=== PATIENT | male | born 1950 | race Caucasian/White ===

== ENCOUNTER 2021-10-02 14:50 | Emergency (ER) | payer BC ==
[~2021-10-02] VITALS: Ht 170.2 cm; Wt 74.8 kg
--- NOTE | 2021-10-02 15:06 | NUR ---
Patient to ER bed 07 to gown for evaluation. Side rails up.
[2021-10-02 15:07] VITALS: BP_SYST 166
--- NOTE | 2021-10-02 15:07 | NUR ---
Dr Rodriguez evaluating patient at bedside
--- NOTE | 2021-10-02 15:15 | NUR ---
Lab at bedside for blood draw.
--- NOTE | 2021-10-02 15:24 | NUR ---
EKG done with results to Dr. Rodriguez for interpretation.
--- NOTE | 2021-10-02 15:39 | NUR ---
PCXR done at bedside.
[2021-10-02 15:41] LABS: ANION GAP 7 (5-15); BASOPHILS % (AUTO) 0.3 % (0.0-2.0); CALCIUM 8.3 mg/dL (8.4-11.0); CHLORIDE 103 mmol/L (98-107); EOSINOPHILS # (AUTO) 0.1 K/uL (0.0-0.4); EOSINOPHILS % (AUTO) 1.1 % (0.0-4.0); GLUCOSE 115 mg/dL (70-99); HEMATOCRIT 41.7 % (36-54); HEMOGLOBIN 14.3 g/dL (14.0-18.0); LYMPHOCYTES # (AUTO) 1.1 K/uL (1.0-5.5); LYMPHOCYTES % (AUTO) 22.6 % (20.5-51.5); MEAN CORPUSCULAR HEMOGLOBIN 30 pg (27-31); MEAN CORPUSCULAR HGB CONC 34 % (32-36); MEAN CORPUSCULAR VOLUME 88 fL (79.0-98.0); MONOCYTES # (AUTO) 0.4 K/uL (0.0-1.0); MONOCYTES % (AUTO) 7.6 % (1.7-9.3); NEUTROPHILS # (AUTO) 3.3 K/uL (1.8-7.7); NEUTROPHILS % (AUTO) 68.4 % (40.0-70.0); PLATELET COUNT (AUTO) 213 K/uL (130-430); POTASSIUM 3.6 mmol/L (3.5-5.1); RED BLOOD CELL COUNT(AUTO) 4.76 MIL/uL (4.2-6.2); RED CELL DISTRIBUTION WIDTH 13.9 % (9.0-15.0); SODIUM SERUM 138 mmol/L (136-145); UREA NITROGEN, BLOOD 11 mg/dL (8-21); WHITE BLOOD COUNT (AUTO) 4.9 K/uL (4.8-10.8)
[2021-10-02 15:43] LABS: GFR AFRICAN AMERICAN 95 mL/min (>90)
[2021-10-02 15:49] LABS: ALANINE AMINOTRANSFERASE 37 U/L (12-78); ALBUMIN 3.6 g/dL (3.4-4.8); ASPARTATE AMINOTRANSFERASE 18 U/L (10-37); TOTAL BILIRUBIN 0.2 mg/dL (0.0-1.0)
--- NOTE | 2021-10-02 16:05 | NUR ---
# 20 gauge angiocath placed to RIGHT AC. Use of asceptic technique. Opsite placed over site. Blood return noted. Flushed with 10 cc of normal saline. No evidence of infiltration noted. Patient tolerated well.
[2021-10-02] MEDS ORDERED: IOHEXOL 350 mgI/mL, 150 ML INFUS..BTL IV ONE (16:12)
--- NOTE | 2021-10-02 16:20 | NUR ---
Pt to CT scan by wheelchair.
--- NOTE | 2021-10-02 16:32 | NUR ---
Pt back from radiology awaiting results.
[2021-10-02] MEDS ORDERED: ASPIRIN 81 MG TAB.CHEW PO ONE (17:45)
--- NOTE | 2021-10-02 18:05 | NUR ---
D/C'D IV HL Per Pt request. Dr. Rodriguez at bedside to update pt on results.
[2021-10-02 18:18] VITALS: BP_SYST 143
--- NOTE | 2021-10-02 18:18 | NUR ---
Patient given written and verbal discharge instructions and verbalizes understanding. Dr. Michael VARGHESE MD discussed with patient the results and treatment provided. Patient in stable condition. ID arm band removed. IV catheter removed intact and dressing applied, no active bleeding. Patient educated on pain management and to follow up with PMD. Pain Scale 0/10. Opportunity for questions provided and answered.
== END 2021-10-02 18:18 | disposition home or self-care (01) ==
LOC: SED 14:50
DX: G45.9 Transient cerebral ischemic attack, unspecified (principal)
CPT/HCPCS: 36415; 70450; 70496; 70498; 71045; 76376; 80053; 84484; 85025; 93005; 99285; Q9967